=== PATIENT | female | born 1985 | race American Indian/Alaskan Native ===

== ENCOUNTER 2021-10-29 01:22 | Emergency (ER) | payer OTHER ==
[2021-10-29] MEDS: cloNIDine 0.2 MG TAB PO ONE ×2 (04:03→05:15)
[2021-10-29 04:06] VITALS: BP 165/115
--- NOTE | 2021-10-29 06:02 | Emergency Department Report ---
ED General Adult HPI - General Chief complaint: High BP Stated complaint: HIGH BP PUI?: No Time Seen by Provider: 10/29/21 03:34 Source: patient Mode of arrival: Ambulatory Limitations: No Limitations - History of Present Illness Initial comments: 36-year-old female with past medical history of frequent heavy EtOH utilization and possible hypertension presents to the emergency department complaining of having elevated blood pressure with a vague headache but no chest pain palpitations no nausea vomiting no presyncope no loss of bowel or bladder no visual changes. She reports no tinnitus. I cannot recall the exact blood pressure number but which is all normal she does not need to come to the ER to have it checked out. -: Gradual Radiation: non-radiation Quality: dull Consistency: constant Improves with: none Worsens with: none Associated Symptoms: denies other symptoms. denies: confusion, chest pain, diaphoresis, loss of appetite, nausea/vomiting, rash Treatments Prior to Arrival: none - Related Data Previous Rx's Medication Instructions Recorded Last Taken Type Amlodipine Besylate [Norvasc] 5 mg PO DAILY #30 10/29/21 Unknown Rx Allergies Allergy/AdvReac Type Severity Reaction Status Date / Time No Known Allergies Allergy Verified 10/29/21 03:46 ED Review of Systems ROS: Stated complaint: HIGH BP Other details as noted in HPI Comment: All other systems reviewed and negative ED Past Medical Hx - Medications Home Medications: Home Medications Medication Instructions Recorded Confirmed Last Taken Type Amlodipine Besylate [Norvasc] 5 mg PO DAILY #30 10/29/21 Unknown Rx ED Physical Exam - General Limitations: No Limitations General appearance: alert, in no apparent distress - Head Head exam: Present: atraumatic, normocephalic - Eye Eye exam: Present: normal appearance, PERRL, EOMI Pupils: Present: normal accommodation - ENT ENT exam: Present: normal exam, normal orophraynx, mucous membranes moist, TM's normal bilaterally - Neck Neck exam: Present: normal inspection, full ROM - Respiratory Respiratory exam: Present: normal lung sounds bilaterally. Absent: respiratory distress, wheezes, rhonchi, chest wall tenderness, decreased breath sounds - Cardiovascular Cardiovascular Exam: Present: regular rate, normal rhythm. Absent: systolic murmur, diastolic murmur, rubs, gallop - GI/Abdominal GI/Abdominal exam: Present: soft, normal bowel sounds - Extremities Exam Extremities exam: Present: normal inspection - Back Exam Back exam: Present: normal inspection. Absent: CVA tenderness (R), CVA tenderness (L) - Neurological Exam Neurological exam: Present: alert, oriented X3. Absent: CN II-XII intact - Psychiatric Psychiatric exam: Present: normal affect, normal mood - Skin Skin exam: Present: warm, dry, intact, normal color. Absent: rash ED Course Vital Signs 10/29/21 10/29/21 01:25 04:03 Temperature 98.0 F Pulse Rate 106 H 85 Respiratory 16 Rate Blood Pressure 184/124 165/115 O2 Sat by Pulse 99 Oximetry ED Medical Decision Making - Medical Decision Making Presents to the emergency department complaining of high blood pressure. Patient is otherwise asymptomatic without confusion, chest pain, hematuria, or SOB. BP today is elevated Patient is not currently on medication Doubt CV, AMI, heart failure, renal infarction or failure or other end organ damage. Disposition:Discussed with patient their elevated blood pressure and need for close outpatient management of their hypertension. Will provide a prescription for the patients previous antihypertensive medication and arrange for the patient to follow up in a primary care clinic Disposition: Discussed with patient their elevated blood pressure and need for close outpatient management of their hypertension. Will provide a prescription for amlodipine 5mg PO daily and arrange for the patient to follow up in a primary care clinic Critical care attestation.: If time is entered above; I have spent that time in minutes in the direct care of this critically ill patient, excluding procedure time. ED Disposition Clinical Impression: HTN (hypertension) Disposition: HOME / SELF CARE / HOMELESS Is pt being admited?: No Does the pt Need Aspirin: No Condition: Stable Instructions: Hypertension, Adult, [id number], Managing Your Hypertension, Hypertension, Adult, Hypertension (ED) Additional Instructions: When seen in the emergency department today for elevated blood pressure and no evidence of any emergent or urgent condition was found during the examination digital pressures of asymmetry emergency department with vomiting with the improve your numbers be discharged with Norvasc please start this this medication to help start the control process of your blood pressure medicine. Follow-up with your primary care provider for further management of the hypertension as medication will be needed beyond this current prescription Prescriptions: Amlodipine Besylate [Norvasc] 5 mg PO DAILY #30 Referrals: MOHIT MARTIN [Other] - 3-5 Days
== END 2021-10-29 06:10 | disposition home or self-care (01) ==
LOC: ED 01:22
DX: I10 Essential (primary) hypertension (principal)
CPT/HCPCS: 99282